=== PATIENT | female | born 1990 | race Two or more races ===

== ENCOUNTER 2021-12-12 08:57 | Emergency (ER) | payer MEDICAID ==
[~2021-12-12] VITALS: Ht 157.5 cm; Wt 84.4 kg
[2021-12-12 09:45] LABS: Basophils # (auto) 0.1 10 ^3/uL (0-0.2); Basophils % (auto) 0.7 % (0.0-2.0); Eosinophils # (auto) 0.1 10 ^3/uL (0-0.8); Eosinophils % (auto) 0.8 % (0.0-7.0); Hemoglobin 12.8 g/dL (12.2-16.2); Lymphocytes # (auto) 1.7 10 ^3/uL (0.4-5.4); Lymphocytes % (auto) 21.8 % (10.0-50.0); Mean Corpuscular Hemoglobin 29.2 pg (28.0-32.0); Mean Corpuscular Hgb Conc. 34.7 g/dL (32.0-36.0); Mean Corpuscular Volume 84.3 fL (80.0-100.0); Monocytes # (auto) 0.5 10 ^3/uL (0-1.3); Neutrophils # (auto) 5.6 10 ^3/uL (1.6-8.6); Neutrophils % (auto) 70.7 % (37.0-80.0); Red Blood Cells 4.39 10^6/uL (4.0-5.20); Red Cell Distribution Width 14.4 % (11.8-14.3); White Blood Cell 7.9 10^3/uL (4.4-10.8)
[2021-12-12 11:19] VITALS: BP 122/81
== END 2021-12-12 11:23 | disposition home or self-care (01) ==
LOC: ER 08:57
DX: O20.0 Threatened abortion (principal); N83.201 Unspecified ovarian cyst, right side; Z86.2 Personal history of diseases of the blood and blood-forming organs and certain disorders involving the immune mechanism; Z3A.09 9 weeks gestation of pregnancy
CPT/HCPCS: 36415; 76801; 84702; 85025

== ENCOUNTER → 2021-12-18 | Outpatient (CLI) | payer MEDICAID ==
[2021-12-18 11:28] LABS: Basophils # (auto) 0 10 ^3/uL (0-0.2); Basophils % (auto) 0.3 % (0.0-2.0); Eosinophils # (auto) 0 10 ^3/uL (0-0.8); Eosinophils % (auto) 0.5 % (0.0-7.0); Hematocrit 36.7 % (36.0-46.0); Hemoglobin 12.5 g/dL (12.2-16.2); Lymphocytes # (auto) 1.5 10 ^3/uL (0.4-5.4); Lymphocytes % (auto) 20.1 % (10.0-50.0); Mean Corpuscular Hemoglobin 28.4 pg (28.0-32.0); Mean Corpuscular Volume 83.6 fL (80.0-100.0); Monocytes # (auto) 0.4 10 ^3/uL (0-1.3); Monocytes % (auto) 5.8 % (0.0-12.0); Neutrophils # (auto) 5.3 10 ^3/uL (1.6-8.6); Neutrophils % (auto) 73.3 % (37.0-80.0); Red Cell Distribution Width 14.1 % (11.8-14.3); White Blood Cell 7.3 10^3/uL (4.4-10.8)
[2021-12-18 12:04] LABS: Amphetamine Screen, Urine NEGATIVE (NEGATIVE); Barbiturate Scree,Urine NEGATIVE (NEGATIVE); Benzodiazephine Screen, Urine NEGATIVE (NEGATIVE); Cannabinoid Screen, Urine NEGATIVE (NEGATIVE); Cocaine Screen, Urine NEGATIVE (NEGATIVE); Opiate Scree,Urine NEGATIVE (NEGATIVE); Phencyclidine Screen, Urine NEGATIVE (NEGATIVE)
[2021-12-19 06:25] LABS: RPR Non Reactive (Non Reactive)
== END | disposition home or self-care (01) ==
LOC: LAB 10:38
PROVIDERS: ATTEND Obstetrics & Gynecology
DX: Z34.00 Encounter for supervision of normal first pregnancy, unspecified trimester (principal); Z31.430 Encounter of female for testing for genetic disease carrier status for procreative management; Z36.0 Encounter for antenatal screening for chromosomal anomalies; N39.0 Urinary tract infection, site not specified
CPT/HCPCS: 36415; 80307; 83036; 84112; 84144; 84702; 85025; 86592; 86703; 86762; 86850; 86900; 86901; 87086; 87340

== ENCOUNTER → 2022-02-19 | Outpatient (CLI) | payer MEDICAID ==
[2022-02-19 10:17] LABS: Basophils # (auto) 0 10 ^3/uL (0-0.2); Basophils % (auto) 0.2 % (0.0-2.0); Eosinophils # (auto) 0.1 10 ^3/uL (0-0.8); Eosinophils % (auto) 0.8 % (0.0-7.0); Hematocrit 34.1 % (36.0-46.0); Hemoglobin 11.1 g/dL (12.2-16.2); Lymphocytes # (auto) 1.3 10 ^3/uL (0.4-5.4); Lymphocytes % (auto) 16.1 % (10.0-50.0); Mean Corpuscular Hemoglobin 27.9 pg (28.0-32.0); Mean Corpuscular Hgb Conc. 32.6 g/dL (32.0-36.0); Mean Corpuscular Volume 85.7 fL (80.0-100.0); Monocytes # (auto) 0.6 10 ^3/uL (0-1.3); Monocytes % (auto) 7.6 % (0.0-12.0); Neutrophils # (auto) 6.1 10 ^3/uL (1.6-8.6); Neutrophils % (auto) 75.3 % (37.0-80.0); Nucleated Red Blood Cells % 0.1 %; Red Blood Cells 3.98 10^6/uL (4.0-5.20); Red Cell Distribution Width 14.1 % (11.8-14.3)
[2022-02-19 10:52] LABS: Albumin 3.1 g/dL (3.4-5.0); Calcium 9.5 mg/dL (8.5-10.1); Potassium 3.9 mmol/L (3.5-5.1); Uric Acid 4.6 mg/dL (2.6-6.0)
[2022-02-19 10:55] LABS: BUN/Creatinine Ratio 20.5; Bilirubin, Total 0.4 mg/dL (0.2-1.0); Total Protein 6.5 g/dL (6.4-8.2)
== END | disposition home or self-care (01) ==
LOC: LAB 09:37
PROVIDERS: ATTEND Obstetrics & Gynecology
DX: Z34.00 Encounter for supervision of normal first pregnancy, unspecified trimester (principal); L29.9 Pruritus, unspecified
CPT/HCPCS: 36415; 80053; 84550; 85025

== ENCOUNTER 2022-05-28 13:43 | Observation (INO) | payer MEDICAID ==
[~2022-05-28] VITALS: Ht 157.5 cm; Wt 89.4 kg
[2022-05-28] MEDS ORDERED: TERBUTALINE SULFATE 1 MG/ML 1ML VIAL SC SCH (14:30)
[2022-05-28] MEDS ORDERED: LACTATED RINGER'S 1,000 ML IV ONE (14:30)
[2022-05-28] MEDS ORDERED: NIF10C PO (17:04)
[2022-05-28] MEDS ORDERED: PREN-96 PO (17:04)
[2022-05-28] MEDS ORDERED: NITR-87 PO (17:05)
== END 2022-05-28 17:14 | disposition home or self-care (01) ==
LOC: UNDOADMOB 13:43 → LDRP 13:43 → UNDODISOB 17:14
PROVIDERS: ADMIT Obstetrics & Gynecology; ATTEND Obstetrics & Gynecology
DX: O60.03 Preterm labor without delivery, third trimester (principal); O26.893 Other specified pregnancy related conditions, third trimester; E86.0 Dehydration; R10.9 Unspecified abdominal pain; O21.2 Late vomiting of pregnancy; O62.9 Abnormality of forces of labor, unspecified; Z3A.33 33 weeks gestation of pregnancy
CPT/HCPCS: 59025; 81002; 94760; 96360; 96372; G0378; J3105

== ENCOUNTER 2022-06-04 11:53 | Observation (INO) | payer MEDICAID ==
[~2022-06-04 11:53] MED LIST: NIF10C PO; NITR-87 PO; PREN-96 PO
== END 2022-06-04 13:38 | disposition home or self-care (01) ==
LOC: UNDOADMOB 11:53 → LDRP 11:53 → UNDODISOB 13:38
PROVIDERS: ADMIT Obstetrics & Gynecology; ATTEND Obstetrics & Gynecology
DX: O60.03 Preterm labor without delivery, third trimester (principal); Z3A.34 34 weeks gestation of pregnancy; Z87.891 Personal history of nicotine dependence
CPT/HCPCS: 59025; 81002; 94760; G0378

== ENCOUNTER 2022-06-11 09:29 | Observation (INO) | payer MEDICAID | END 2022-06-11 10:55 | disposition home or self-care (01) | LOC: UNDOADMOB 09:29 → LDRP 09:29 | PROVIDERS: ADMIT Obstetrics & Gynecology; ATTEND Obstetrics & Gynecology | DX: O60.03 Preterm labor without delivery, third trimester (principal); Z3A.35 35 weeks gestation of pregnancy; Z87.891 Personal history of nicotine dependence | CPT/HCPCS: 59025; 81002; 82948; 94760; G0378 ==

== ENCOUNTER → 2022-06-11 | Outpatient (CLI) | payer MEDICAID ==
[2022-06-11 09:28] LABS: Basophils # (auto) 0 10 ^3/uL (0-0.2); Basophils % (auto) 0.4 % (0.0-2.0); Eosinophils # (auto) 0.1 10 ^3/uL (0-0.8); Eosinophils % (auto) 1.8 % (0.0-7.0); Hematocrit 38.1 % (36.0-46.0); Hemoglobin 12.2 g/dL (12.2-16.2); Lymphocytes # (auto) 1.3 10 ^3/uL (0.4-5.4); Lymphocytes % (auto) 18.5 % (10.0-50.0); Mean Corpuscular Hemoglobin 27.3 pg (28.0-32.0); Mean Corpuscular Hgb Conc. 32.1 g/dL (32.0-36.0); Mean Corpuscular Volume 84.9 fL (80.0-100.0); Monocytes # (auto) 0.6 10 ^3/uL (0-1.3); Monocytes % (auto) 9.1 % (0.0-12.0); Neutrophils # (auto) 4.9 10 ^3/uL (1.6-8.6); Neutrophils % (auto) 70.2 % (37.0-80.0); Red Blood Cells 4.49 10^6/uL (4.0-5.20); Red Cell Distribution Width 14.5 % (11.8-14.3)
[2022-06-12 07:07] LABS: RPR Non Reactive (Non Reactive)
== END | disposition home or self-care (01) ==
LOC: LAB 09:11
PROVIDERS: ATTEND Obstetrics & Gynecology
DX: Z34.80 Encounter for supervision of other normal pregnancy, unspecified trimester (principal); Z3A.00 Weeks of gestation of pregnancy not specified
CPT/HCPCS: 36415; 84112; 85025; 86592

== ENCOUNTER 2022-07-13 09:11 | Observation (INO) | payer MEDICAID ==
[~2022-07-13 09:11] MED LIST changes: -NITR-87 PO
== END 2022-07-13 11:28 | disposition home or self-care (01) ==
LOC: LDRP 09:11
PROVIDERS: ADMIT Obstetrics & Gynecology; ATTEND Obstetrics & Gynecology
DX: O48.0 Post-term pregnancy (principal); O62.9 Abnormality of forces of labor, unspecified; O34.63 Maternal care for abnormality of vagina, third trimester; N89.8 Other specified noninflammatory disorders of vagina; Z3A.39 39 weeks gestation of pregnancy; Z87.891 Personal history of nicotine dependence
CPT/HCPCS: 59025; 76818; 81002; G0378

== ENCOUNTER 2022-07-15 09:08 | Observation (INO) | payer MEDICAID ==
[~2022-07-15] VITALS: Ht 190.5 cm; Wt 92.5 kg
[~2022-07-15 09:08] MED LIST changes: -NIF10C PO
== END 2022-07-15 21:01 | disposition home or self-care (01) ==
LOC: LDRP 19:20
PROVIDERS: ADMIT Obstetrics & Gynecology; ATTEND Obstetrics & Gynecology
DX: O48.0 Post-term pregnancy (principal); O62.9 Abnormality of forces of labor, unspecified; Z3A.40 40 weeks gestation of pregnancy
CPT/HCPCS: 59025; 76818; 81002; G0378

== ENCOUNTER 2022-07-16 10:35 | Inpatient (IN) | payer MEDICAID ==
[~2022-07-16] VITALS: Ht 160 cm; Wt 92.5 kg
[2022-07-16] MEDS ORDERED: PROMETHAZINE HCL 25 MG/ML 1ML IV PRN (11:15)
[2022-07-16] MEDS ORDERED: BUTORPHANOL TARTRATE 2 MG/1 ML VIAL IV PRN ×2 (11:15)
[2022-07-16] MEDS ORDERED: PHISODERM TOP SOLN 240ML BTL TOP PRN (11:15)
[2022-07-16] MEDS ORDERED: DERMOPLAST 60ML BOTTLE TOP PRN (11:15)
[2022-07-16] MEDS ORDERED: PENICILLIN G POT 5MIL/D5 50ML 50 ML IV ONE (11:15)
[2022-07-16] MEDS ORDERED: WITCH HAZEL-GLYCERIN PAD TOP PRN (11:15)
[2022-07-16] MEDS ORDERED: LIDOCAINE 2%HCL (LOCAL ANESTH.) INJ 20ML MDV IJ PRN (11:15)
[2022-07-16] MEDS ORDERED: LACT. RINGERS/OXYTOCIN 20UNITS 500 ML IV ONE ×2 (11:30→12:00)
[2022-07-16] MEDS: LACTATED RINGER'S 1,000 ML IV SCH (12:00)
[2022-07-16 12:10] LABS: Basophils # (auto) 0 10 ^3/uL (0-0.2); Basophils % (auto) 0.3 % (0.0-2.0); Eosinophils # (auto) 0.1 10 ^3/uL (0-0.8); Eosinophils % (auto) 1.7 % (0.0-7.0); Hematocrit 37.6 % (36.0-46.0); Hemoglobin 12.2 g/dL (12.2-16.2); Lymphocytes # (auto) 1.5 10 ^3/uL (0.4-5.4); Lymphocytes % (auto) 20.1 % (10.0-50.0); Mean Corpuscular Hemoglobin 27.7 pg (28.0-32.0); Mean Corpuscular Hgb Conc. 32.6 g/dL (32.0-36.0); Mean Corpuscular Volume 85.1 fL (80.0-100.0); Monocytes # (auto) 0.6 10 ^3/uL (0-1.3); Monocytes % (auto) 8.1 % (0.0-12.0); Neutrophils # (auto) 5.1 10 ^3/uL (1.6-8.6); Neutrophils % (auto) 69.8 % (37.0-80.0); Nucleated Red Blood Cells % 0.1 %; Red Blood Cells 4.42 10^6/uL (4.0-5.20); Red Cell Distribution Width 14.7 % (11.8-14.3); White Blood Cell 7.3 10^3/uL (4.4-10.8)
[2022-07-16] MEDS: miSOPROStol 50 MCG per PRE-CUT 1/2 TAB PO PRN ×2 (12:12→16:36)
[2022-07-16 12:15] LABS: Albumin 2.7 g/dL (3.4-5.0); BUN/Creatinine Ratio 18.5; Calcium 9.4 mg/dL (8.5-10.1)
[2022-07-16 12:18] LABS: Bilirubin, Total 0.5 mg/dL (0.2-1.0); INR 0.87 (0.9-1.15); Partial Thromboplastin Time 24.8 sec (24.6-33.4); Total Protein 6.7 g/dL (6.4-8.2)
[2022-07-16 12:31] LABS: Urine Bacteria FEW /hpf (None Seen); Urine Blood 1+ /uL (Negative); Urine Specific Gravity 1.011 (1.001-1.035); Urine WBC 8 /hpf (0 - 5)
[2022-07-16 12:48] LABS: Alcohol, Urine < 3.0 mg/dL (0-10); Benzodiazephine Screen, Urine NEGATIVE (NEGATIVE); Cannabinoid Screen, Urine NEGATIVE (NEGATIVE); Cocaine Screen, Urine NEGATIVE (NEGATIVE); Opiate Scree,Urine NEGATIVE (NEGATIVE); Phencyclidine Screen, Urine NEGATIVE (NEGATIVE)
[2022-07-16 12:50] LABS: Amphetamine Screen, Urine NEGATIVE (NEGATIVE); Barbiturate Scree,Urine NEGATIVE (NEGATIVE)
[2022-07-16] MEDS ORDERED: PENICILLIN G POTASSIUM 2,500,000 UNITS in D5W 5% 50 ML IV SCH (15:15)
[2022-07-16] MEDS: PENICILLIN G POTASSIUM 2,500,000 UNITS in D5W 5% 50 ML IV SCH ×2 (16:14→20:16)
[2022-07-16] MEDS ORDERED: ePHEDrine SULFATE 50 MG/ML AMP IV ONE (20:45)
[2022-07-16] MEDS ORDERED: ROPIVACAINE HCL 200 ML EPI SCH (20:45)
[2022-07-16] MEDS ORDERED: fentaNYL CITRATE 100 MCG/2 ML VL EPI ONE (20:45)
[2022-07-16] MEDS ORDERED: NALOXONE HCL 0.4 MG/ML VIAL IV ONE (20:45)
[2022-07-16] MEDS ORDERED: LACTATED RINGER'S 1,000 ML IV ONE (20:45)
[2022-07-17] VITALS (10 sets, daily range): BP systolic 115–142; BP diastolic 64–84
[2022-07-17] MEDS: PENICILLIN G POTASSIUM 2,500,000 UNITS in D5W 5% 50 ML IV SCH ×3 (00:15→09:11)
[2022-07-17] MEDS: ROPIVACAINE HCL 200 ML EPI SCH ×2 (00:16→11:54)
[2022-07-17] MEDS: LACTATED RINGER'S 1,000 ML IV SCH ×2 (01:08→05:46)
[2022-07-17] MEDS ORDERED: LACT. RINGERS/OXYTOCIN 20UNITS 1,000 ML IV SCH (01:15)
[2022-07-17 07:06] LABS: RPR Non Reactive (Non Reactive)
[2022-07-17] MEDS ORDERED: ROPIVACAINE HCL 200 ML ONE (11:52)
[2022-07-17] MEDS ORDERED: LIDOCAINE 2%HCL (LOCAL ANESTH.) INJ 10ml MDV ONE (12:20)
[2022-07-17] MEDS ORDERED: fentaNYL 400mCg/200ml W ROPIVA 200 ML EPI SCH (12:25)
[2022-07-17] MEDS ORDERED: fentaNYL CITRATE 100 MCG/2 ML VL ONE (12:28)
[2022-07-17] MEDS ORDERED: ePHEDrine SULFATE 50 MG/ML AMP IV ONE (13:30)
[2022-07-17] MEDS ORDERED: NALOXONE HCL 0.4 MG/ML VIAL IV ONE (13:30)
[2022-07-17] MEDS ORDERED: ceFAZolin 1GM/50ML 50 ML IV ONE (14:00)
[2022-07-17] MEDS ORDERED: ONDANSETRON HCL 4 MG/2 ML VIAL ONE (14:09)
[2022-07-17] MEDS ORDERED: ePHEDrine SULFATE 50 MG/ML AMP ONE (14:09)
[2022-07-17] MEDS ORDERED: GLYCOPYRROLATE 0.2 MG/ML 1ML VIAL ONE (14:09)
[2022-07-17] MEDS ORDERED: MORPHINE SULF PF 5 MG/10 ML VIAL ONE (14:09)
[2022-07-17] MEDS ORDERED: oxyTOCIN 10 UNIT/ML 10ML VIAL ONE (14:09)
[2022-07-17] MEDS ORDERED: LACTATED RINGER'S 1,000 ML IV SCH (14:15)
[2022-07-17] MEDS ORDERED: LACTATED RINGER'S 1,000 ML IV ONE (14:15)
[2022-07-17] MEDS ORDERED: ROCURONIUM 10MG/ML 10ML VIAL IV ONE (14:51)
[2022-07-17] MEDS ORDERED: MIDAZOLAM HCL 2MG/2ML 2ml VIAL (1mg/ml) ONE (14:52)
[2022-07-17] MEDS ORDERED: CARBOPROST TROMETHAMINE 250 MCG/1ML VIAL IM ONE (14:58)
[2022-07-17] MEDS ORDERED: FAMOTIDINE (10MG/ML) 2ML VL IV ONE (15:01)
[2022-07-17] MEDS ORDERED: GUM (CHEWING) 1 GUM CHEW CHEW ONE ×2 (15:30→15:45)
[2022-07-17] MEDS ORDERED: LACT. RINGERS/OXYTOCIN 20UNITS 1,000 ML IV ONE ×2 (15:30→15:45)
[2022-07-17] MEDS ORDERED: ONDANSETRON HCL 4 MG/2 ML VIAL IV PRN ×4 (15:30→16:00)
[2022-07-17] MEDS ORDERED: ePHEDrine SULFATE 50 MG/ML AMP IV PRN (15:45)
[2022-07-17] MEDS ORDERED: MORPHINE SULFATE 4 MG/ML SYR/VIAL IV PRN (15:45)
[2022-07-17] MEDS ORDERED: diphenhdrAMINE HCL 50 MG/1 ML VL IV PRN (16:00)
[2022-07-17] MEDS ORDERED: KETOROLAC TROMETH 30 MG/ML 1ML VIAL IV PRN (16:00)
[2022-07-17] MEDS ORDERED: DexAMETHasone SOD PHOS 10MG/1ML VIAL INJ IV PRN (16:00)
[2022-07-17] MEDS ORDERED: NALOXONE HCL 0.4 MG/ML VIAL IV PRN ×2 (16:00)
[2022-07-17] MEDS ORDERED: DIPHENOXYLATE W/ATROPINE 2.5 MG TAB PO PRN (16:00)
[2022-07-17] MEDS ORDERED: HYDROmorphone HCL 2 MG/ML VL/or syr IV PRN (16:00)
[2022-07-17 17:32] LABS: Basophils # (auto) 0 10 ^3/uL (0-0.2); Basophils % (auto) 0.1 % (0.0-2.0); Eosinophils # (auto) 0 10 ^3/uL (0-0.8); Hematocrit 34.1 % (36.0-46.0); Hemoglobin 11.3 g/dL (12.2-16.2); Lymphocytes # (auto) 0.5 10 ^3/uL (0.4-5.4); Lymphocytes % (auto) 3.7 % (10.0-50.0); Mean Corpuscular Hemoglobin 28.2 pg (28.0-32.0); Mean Corpuscular Hgb Conc. 33.2 g/dL (32.0-36.0); Mean Corpuscular Volume 84.9 fL (80.0-100.0); Monocytes # (auto) 0.7 10 ^3/uL (0-1.3); Monocytes % (auto) 4.8 % (0.0-12.0); Neutrophils # (auto) 12.5 10 ^3/uL (1.6-8.6); Neutrophils % (auto) 91.4 % (37.0-80.0); Red Blood Cells 4.02 10^6/uL (4.0-5.20); Red Cell Distribution Width 14.9 % (11.8-14.3); White Blood Cell 13.6 10^3/uL (4.4-10.8)
[2022-07-17 17:50] LABS: Albumin 2.2 g/dL (3.4-5.0); BUN/Creatinine Ratio 18.1; Calcium 8.3 mg/dL (8.5-10.1); Potassium 3.3 mmol/L (3.5-5.1); Uric Acid 6.4 mg/dL (2.6-6.0)
[2022-07-17 17:53] LABS: Bilirubin, Total 0.8 mg/dL (0.2-1.0); Total Protein 5.5 g/dL (6.4-8.2)
[2022-07-17 18:00] LABS: INR 0.93 (0.9-1.15); Partial Thromboplastin Time 24.8 sec (24.6-33.4)
[2022-07-17 18:03] LABS: Urine Bacteria NONE SEEN /hpf (None Seen); Urine Blood 2+ /uL (Negative); Urine Specific Gravity 1.011 (1.001-1.035); Urine WBC 4 /hpf (0 - 5)
[2022-07-17 18:33] LABS: Protein, Urine 30.9 mg/dL (0.0-11.9)
[2022-07-17] MEDS ORDERED: fentaNYL CITRATE 100 MCG/2 ML VL IV ONE (19:30)
[2022-07-17] MEDS: ceFAZolin 1GM/50ML 50 ML IV SCH (21:02)
[2022-07-17 23:27] LABS: Basophils # (auto) 0 10 ^3/uL (0-0.2); Basophils % (auto) 0.1 % (0.0-2.0); Eosinophils # (auto) 0 10 ^3/uL (0-0.8); Hematocrit 31.8 % (36.0-46.0); Hemoglobin 10.3 g/dL (12.2-16.2); Lymphocytes # (auto) 0.7 10 ^3/uL (0.4-5.4); Mean Corpuscular Hemoglobin 27.6 pg (28.0-32.0); Mean Corpuscular Hgb Conc. 32.4 g/dL (32.0-36.0); Mean Corpuscular Volume 85.1 fL (80.0-100.0); Monocytes # (auto) 0.8 10 ^3/uL (0-1.3); Monocytes % (auto) 5.6 % (0.0-12.0); Neutrophils # (auto) 12.2 10 ^3/uL (1.6-8.6); Neutrophils % (auto) 89.3 % (37.0-80.0); Red Blood Cells 3.73 10^6/uL (4.0-5.20); Red Cell Distribution Width 15.3 % (11.8-14.3); White Blood Cell 13.7 10^3/uL (4.4-10.8)
[2022-07-18] VITALS (20 sets, daily range): BP systolic 110–146; BP diastolic 65–83
[2022-07-18] MEDS: ACETAMINOPHEN IV 1000 MG/100ML (10MG/ML) IV PRN ×2 (03:50→13:01)
[2022-07-18] MEDS: ceFAZolin 1GM/50ML 50 ML IV SCH ×3 (05:33→21:12)
[2022-07-18 06:38] LABS: Basophils # (auto) 0 10 ^3/uL (0-0.2); Basophils % (auto) 0.1 % (0.0-2.0); Eosinophils # (auto) 0 10 ^3/uL (0-0.8); Hematocrit 29.4 % (36.0-46.0); Hemoglobin 9.9 g/dL (12.2-16.2); Lymphocytes # (auto) 1.6 10 ^3/uL (0.4-5.4); Lymphocytes % (auto) 13.4 % (10.0-50.0); Mean Corpuscular Hemoglobin 28.6 pg (28.0-32.0); Mean Corpuscular Hgb Conc. 33.6 g/dL (32.0-36.0); Mean Corpuscular Volume 85.1 fL (80.0-100.0); Monocytes % (auto) 8.2 % (0.0-12.0); Neutrophils # (auto) 9.3 10 ^3/uL (1.6-8.6); Neutrophils % (auto) 78.3 % (37.0-80.0); Nucleated Red Blood Cells % 0.1 %; Red Blood Cells 3.45 10^6/uL (4.0-5.20); Red Cell Distribution Width 15.2 % (11.8-14.3); White Blood Cell 11.9 10^3/uL (4.4-10.8)
[2022-07-18] MEDS ORDERED: HYDR-4902 PO (07:17)
[2022-07-18] MEDS ORDERED: IBUP800T27 PO (07:17)
[2022-07-18] MEDS ORDERED: DOCU-94 PO (07:17)
[2022-07-18] MEDS ORDERED: BISACODYL 10 MG RECT SUPP PR PRN (14:30)
[2022-07-18] MEDS ORDERED: LACTATED RINGER'S 1,000 ML IV SCH (14:30)
[2022-07-18] MEDS ORDERED: HYDROcodone-ACET 5/325MG TAB PO PRN (14:30)
[2022-07-18] MEDS: HYDROcodone-ACET 5/325MG TAB PO PRN (15:51)
[2022-07-18] MEDS: SIMETHICONE 80 MG CHEWABLE TABLET PO SCH ×2 (21:10→21:12)
[2022-07-18] MEDS: DOCUSATE SOD 100 MG CAP PO SCH (21:12)
[2022-07-18] MEDS: IBUPROFEN 800 MG TAB PO PRN (21:13)
[2022-07-19] MEDS: HYDROcodone-ACET 5/325MG TAB PO PRN ×4 (00:44→22:14)
[2022-07-19 03:30] VITALS: BP 128/66
[2022-07-19] MEDS: ceFAZolin 1GM/50ML 50 ML IV SCH (05:24)
[2022-07-19] MEDS: IBUPROFEN 800 MG TAB PO PRN ×2 (05:24→12:55)
[2022-07-19] MEDS: SIMETHICONE 80 MG CHEWABLE TABLET PO SCH ×4 (05:24→22:05)
[2022-07-19 07:00] VITALS: BP 130/70
[2022-07-19] MEDS: DOCUSATE CALCIUM 240 MG CAP PO SCH ×2 (10:51→13:08)
[2022-07-19 11:00] VITALS: BP 138/69
[2022-07-19 15:00] VITALS: BP 140/69
[2022-07-19 19:30] VITALS: BP 137/84
[2022-07-19] MEDS: DOCUSATE SOD 100 MG CAP PO SCH ×2 (22:00→22:05)
[2022-07-19 22:48] VITALS: BP 134/84
[2022-07-20 03:00] VITALS: BP 133/79
[2022-07-20] MEDS: HYDROcodone-ACET 5/325MG TAB PO PRN (04:34)
[2022-07-20] MEDS: SIMETHICONE 80 MG CHEWABLE TABLET PO SCH (06:00)
[2022-07-20 07:00] VITALS: BP 140/79
[2022-07-20] MEDS: DOCUSATE SOD 100 MG CAP PO SCH (10:00)
[2022-07-20] MEDS: IBUPROFEN 800 MG TAB PO PRN (10:09)
[2022-07-20 11:00] VITALS: BP 129/84
== END 2022-07-20 12:26 | disposition home or self-care (01) | DRG 540 ==
LOC: LDRP 10:35
PROVIDERS: ADMIT Obstetrics & Gynecology; ATTEND Obstetrics & Gynecology
PROC: 10D00Z1 Extraction of Products of Conception, Low, Open Approach (ICD-10-PCS; principal; 2022-07-17 14:28)
DX: O48.0 Post-term pregnancy (principal); O62.0 Primary inadequate contractions; O69.81X0 Labor and delivery complicated by cord around neck, without compression, not applicable or unspecified; Z20.822 Contact with and (suspected) exposure to COVID-19; Z3A.40 40 weeks gestation of pregnancy; Z37.0 Single live birth
CPT/HCPCS: 36415; 59025; 62282; 80053; 80307; 81001; 81002; 82570; 84156; 84550; 85025; 85362; 85610; 85730; 86592; 86850; 86900; 86901; 87426; 94760; 94762; 96360; 96361; 96365; 96366; 96374; G0378; J0131; J0690; J2001; J2250; J2405; J2540; J2590; J3490; J7060

== ENCOUNTER 2022-07-21 17:10 | Inpatient (IN) | payer MEDICAID ==
[~2022-07-21] VITALS: Ht 160 cm; Wt 90.6 kg
[~2022-07-21 17:10] MED LIST changes: +DOCU-94 PO; +HYDR-4902 PO; +IBUP800T27 PO
[2022-07-21] MEDS: SODIUM CHLORIDE 0.9% 1,000 ML IV ONE ×2 (18:31→18:40)
[2022-07-21] MEDS ORDERED: cefTRIAXone 1GM/50ML D5W 50 ML IV ONE (18:45)
[2022-07-21] MEDS ORDERED: SODIUM CHLORIDE 0.9% 2,100 ML IV ONE (18:45)
[2022-07-21 18:46] LABS: Basophils # (auto) 0 10 ^3/uL (0-0.2); Eosinophils # (auto) 0.1 10 ^3/uL (0-0.8); Hemoglobin 10.9 g/dL (12.2-16.2); Lymphocytes # (auto) 1.1 10 ^3/uL (0.4-5.4); Lymphocytes % (auto) 8.6 % (10.0-50.0); Mean Corpuscular Volume 84.9 fL (80.0-100.0); Monocytes # (auto) 0.6 10 ^3/uL (0-1.3); Neutrophils # (auto) 10.4 10 ^3/uL (1.6-8.6); Neutrophils % (auto) 85.4 % (37.0-80.0); Red Blood Cells 3.89 10^6/uL (4.0-5.20); Red Cell Distribution Width 14.8 % (11.8-14.3); White Blood Cell 12.2 10^3/uL (4.4-10.8)
[2022-07-21 18:50] LABS: Albumin 2.5 g/dL (3.4-5.0); BUN/Creatinine Ratio 15.8; Calcium 8.6 mg/dL (8.5-10.1); Potassium 3.4 mmol/L (3.5-5.1)
[2022-07-21] MEDS ORDERED: ACETAMINOPHEN 325 MG TAB PO ONE (19:00)
[2022-07-21 19:31] LABS: Bilirubin, Total 0.6 mg/dL (0.2-1.0); Total Protein 7.1 g/dL (6.4-8.2)
[2022-07-21 21:38] LABS: Alcohol, Urine < 3.0 mg/dL (0-10); Amphetamine Screen, Urine NEGATIVE (NEGATIVE); Barbiturate Scree,Urine NEGATIVE (NEGATIVE); Benzodiazephine Screen, Urine NEGATIVE (NEGATIVE); Cannabinoid Screen, Urine NEGATIVE (NEGATIVE); Cocaine Screen, Urine NEGATIVE (NEGATIVE); Opiate Scree,Urine NEGATIVE (NEGATIVE); Phencyclidine Screen, Urine NEGATIVE (NEGATIVE)
[2022-07-21 21:53] LABS: Urine Bacteria NONE SEEN /hpf (None Seen); Urine Blood 3+ /uL (Negative); Urine Mucus FEW (None Seen); Urine Specific Gravity 1.016 (1.001-1.035); Urine WBC 14 /hpf (0 - 5)
[2022-07-21] MEDS ORDERED: PIPERACILLIN-TAZOB 3.375GM 100 ML IV ONE (22:45)
[2022-07-21] MEDS ORDERED: ONDANSETRON HCL 4 MG/2 ML VIAL IV PRN (23:15)
[2022-07-21] MEDS ORDERED: DOCUSATE SOD 100 MG CAP PO PRN (23:15)
[2022-07-21] MEDS ORDERED: POTASSIUM CHL 20 Meq TABLET PO ONE (23:30)
[2022-07-21] MEDS: SODIUM CHLORIDE 0.9% 1,000 ML IV SCH (23:57)
[2022-07-22] MEDS: HYDROcodone-ACET 5/325MG TAB PO PRN ×3 (04:29→18:47)
[2022-07-22 06:10] LABS: Albumin 2.1 g/dL (3.4-5.0); Calcium 8.4 mg/dL (8.5-10.1); Potassium 3.3 mmol/L (3.5-5.1)
[2022-07-22 06:13] LABS: BUN/Creatinine Ratio 17.6
[2022-07-22 06:14] LABS: Basophils # (auto) 0 10 ^3/uL (0-0.2); Basophils % (auto) 0.1 % (0.0-2.0); Eosinophils # (auto) 0.1 10 ^3/uL (0-0.8); Eosinophils % (auto) 0.7 % (0.0-7.0); Hematocrit 29.1 % (36.0-46.0); Hemoglobin 9.6 g/dL (12.2-16.2); Lymphocytes # (auto) 1.2 10 ^3/uL (0.4-5.4); Lymphocytes % (auto) 9.3 % (10.0-50.0); Mean Corpuscular Hemoglobin 28.1 pg (28.0-32.0); Mean Corpuscular Volume 85.1 fL (80.0-100.0); Monocytes # (auto) 0.9 10 ^3/uL (0-1.3); Monocytes % (auto) 6.8 % (0.0-12.0); Neutrophils # (auto) 10.5 10 ^3/uL (1.6-8.6); Neutrophils % (auto) 83.1 % (37.0-80.0); Nucleated Red Blood Cells % 0.1 %; Red Blood Cells 3.41 10^6/uL (4.0-5.20); Red Cell Distribution Width 14.8 % (11.8-14.3); White Blood Cell 12.6 10^3/uL (4.4-10.8)
[2022-07-22 06:15] LABS: Bilirubin, Total 0.6 mg/dL (0.2-1.0); Total Protein 5.9 g/dL (6.4-8.2)
[2022-07-22] MEDS: PIPERACILLIN-TAZOB 3.375GM 100 ML IV SCH ×3 (08:07→23:56)
[2022-07-22] MEDS ORDERED: cefTRIAXone 1GM/50ML D5W 50 ML IV SCH (09:00)
[2022-07-22] MEDS: SODIUM CHLORIDE 0.9% 1,000 ML IV SCH (09:15)
[2022-07-22] MEDS ORDERED: PANTOPRAZOLE 40 MG/10 ML VIAL INJ IV SCH (10:00)
[2022-07-22] MEDS ORDERED: SOD CHL 0.9%/ KCL 40MEQ 1,000 ML IV ONE (10:45)
[2022-07-22] MEDS: ACETAMINOPHEN 325 MG TAB PO PRN (18:47)
[2022-07-22 22:00] VITALS: BP 124/88
[2022-07-23] VITALS (7 sets, daily range): BP systolic 92–151; BP diastolic 47–107
[2022-07-23] MEDS: HYDROcodone-ACET 5/325MG TAB PO PRN ×3 (01:30→19:13)
[2022-07-23 07:00] LABS: BUN/Creatinine Ratio 15.4; Calcium 8.4 mg/dL (8.5-10.1); Potassium 3.6 mmol/L (3.5-5.1)
[2022-07-23 07:09] LABS: Basophils # (auto) 0 10 ^3/uL (0-0.2); Basophils % (auto) 0.1 % (0.0-2.0); Eosinophils # (auto) 0.2 10 ^3/uL (0-0.8); Hematocrit 27.9 % (36.0-46.0); Hemoglobin 9.4 g/dL (12.2-16.2); Lymphocytes # (auto) 1.1 10 ^3/uL (0.4-5.4); Lymphocytes % (auto) 9.6 % (10.0-50.0); Mean Corpuscular Hemoglobin 28.3 pg (28.0-32.0); Mean Corpuscular Hgb Conc. 33.6 g/dL (32.0-36.0); Mean Corpuscular Volume 84.4 fL (80.0-100.0); Monocytes # (auto) 0.9 10 ^3/uL (0-1.3); Neutrophils # (auto) 9.1 10 ^3/uL (1.6-8.6); Neutrophils % (auto) 80.3 % (37.0-80.0); Nucleated Red Blood Cells % 0.3 %; Red Cell Distribution Width 15.1 % (11.8-14.3); White Blood Cell 11.4 10^3/uL (4.4-10.8)
[2022-07-23] MEDS ORDERED: POLYETHYLENE GLYCOL 17 GM PWDR PO PRN (09:00)
[2022-07-23] MEDS: PIPERACILLIN-TAZOB 3.375GM 100 ML IV SCH ×2 (09:02→17:32)
[2022-07-23] MEDS ORDERED: CEPH-510 PO (09:03)
[2022-07-23] MEDS: LACTATED RINGER'S 1,000 ML IV SCH ×2 (09:03→18:45)
[2022-07-23] MEDS ORDERED: NIFEdipine ER 30 MG TAB PO SCH (14:15)
[2022-07-23 16:10] LABS: Albumin 2.2 g/dL (3.4-5.0); Anion Gap 7 (5-15); Blood Urea Nitrogen 6 mg/dL (7-18); Calcium 8.5 mg/dL (8.5-10.1); Carbon Dioxide 28 mmol/L (21-32); Chloride 105 mmol/L (98-107); Glucose 102 mg/dL (74-106); Potassium 3.2 mmol/L (3.5-5.1); Sodium 140 mmol/L (136-145)
[2022-07-23 16:20] LABS: Alanine Aminotransferase 24 U/L (13-56); Alkaline Phosphatase 114 U/L (45-117); Aspartate Aminotransferase 30 U/L (15-37); BUN/Creatinine Ratio 11.5; Bilirubin, Total 0.7 mg/dL (0.2-1.0); GFR African American 178 mL/min; GFR Non-African American 147 mL/min; Total Protein 6.4 g/dL (6.4-8.2)
[2022-07-23 16:22] LABS: CRP High Sensitivity > 19.0 mg/dL (< 0.3)
[2022-07-23 18:06] LABS: Urine Bacteria NONE SEEN /hpf (None Seen); Urine Blood 3+ /uL (Negative); Urine Specific Gravity 1.011 (1.001-1.035); Urine WBC 279 /hpf (0 - 5)
[2022-07-23 18:16] LABS: Protein, Urine 60.2 mg/dL (0.0-11.9)
[2022-07-23] MEDS ORDERED: POTASSIUM EFFERVESENT TAB 25 MEQ PO ONE (19:15)
[2022-07-23] MEDS: LABETALOL HCL 200 MG TAB PO SCH (22:06)
[2022-07-24] MEDS: ACETAMINOPHEN 325 MG TAB PO PRN (00:03)
[2022-07-24] MEDS: PIPERACILLIN-TAZOB 3.375GM 100 ML IV SCH ×2 (00:49→09:29)
[2022-07-24] MEDS: HYDROcodone-ACET 5/325MG TAB PO PRN ×2 (03:27→09:29)
[2022-07-24] MEDS ORDERED: LACTATED RINGER'S 1,000 ML IV SCH (04:45)
[2022-07-24 05:00] VITALS: BP 124/83
[2022-07-24 05:53] LABS: Basophils # (auto) 0 10 ^3/uL (0-0.2); Basophils % (auto) 0.1 % (0.0-2.0); Eosinophils # (auto) 0.3 10 ^3/uL (0-0.8); Eosinophils % (auto) 2.4 % (0.0-7.0); Hematocrit 29.9 % (36.0-46.0); Hemoglobin 9.9 g/dL (12.2-16.2); Lymphocytes # (auto) 1.3 10 ^3/uL (0.4-5.4); Lymphocytes % (auto) 10.8 % (10.0-50.0); Mean Corpuscular Hemoglobin 27.8 pg (28.0-32.0); Mean Corpuscular Volume 84.3 fL (80.0-100.0); Monocytes # (auto) 0.9 10 ^3/uL (0-1.3); Monocytes % (auto) 7.5 % (0.0-12.0); Neutrophils # (auto) 9.3 10 ^3/uL (1.6-8.6); Neutrophils % (auto) 79.2 % (37.0-80.0); Nucleated Red Blood Cells % 0.1 %; Red Blood Cells 3.55 10^6/uL (4.0-5.20); Red Cell Distribution Width 15.5 % (11.8-14.3); White Blood Cell 11.7 10^3/uL (4.4-10.8)
[2022-07-24 06:05] LABS: BUN/Creatinine Ratio 11.5; Calcium 8.5 mg/dL (8.5-10.1)
[2022-07-24 08:00] VITALS: BP 127/91
[2022-07-24 09:00] VITALS: BP 127/91
[2022-07-24] MEDS ORDERED: LABE200T6 PO (09:19)
[2022-07-24] MEDS: LABETALOL HCL 200 MG TAB PO SCH (09:57)
[2022-07-24 11:05] VITALS: BP 127/91
== END 2022-07-24 12:54 | disposition home or self-care (01) | DRG 561 ==
LOC: ER 17:10 → OVERFLOW 23:17 → WEST WING 07-22 21:09
PROVIDERS: ADMIT Nurse Practitioner Family; ATTEND Nurse Practitioner Acute Care
DX: O85 Puerperal sepsis (principal); E43 Unspecified severe protein-calorie malnutrition; E86.0 Dehydration; N39.0 Urinary tract infection, site not specified; Z20.822 Contact with and (suspected) exposure to COVID-19; O99.285 Endocrine, nutritional and metabolic diseases complicating the puerperium; O25.3 Malnutrition in the puerperium; E87.6 Hypokalemia; G43.909 Migraine, unspecified, not intractable, without status migrainosus; K59.00 Constipation, unspecified; Z90.49 Acquired absence of other specified parts of digestive tract
CPT/HCPCS: 36415; 71045; 74176; 80048; 80053; 80307; 81001; 82570; 83605; 84156; 84550; 84702; 85025; 86141; 86850; 86900; 86901; 87040; 87086; 87426; 93005; 96365; 96375; C9113; G0378; J0696; J2543

== ENCOUNTER 2023-08-03 20:22 | Emergency (ER) | payer MEDICAID ==
[~2023-08-03] VITALS: Ht 160 cm; Wt 90.0 kg
[~2023-08-03 20:22] MED LIST changes: +CEPH-510 PO; +IBUP-1456 PO; -IBUP800T27 PO; +LABE200T6 PO
[2023-08-03 20:58] LABS: Urine Bacteria NONE SEEN /hpf (None Seen); Urine Blood 1+ /uL (Negative); Urine Clarity Clear (Clear); Urine Color Yellow (Yellow); Urine Mucus FEW (None Seen); Urine Protein, UAD TRACE (Negative); Urine Specific Gravity 1.028 (1.001-1.035); Urine Urobilinogen Normal (Negative); Urine WBC 3 /hpf (0 - 5); Urine pH 5.5 (5.0-8.0)
[2023-08-04] MEDS ORDERED: CYCL-837 PO (02:05)
[2023-08-04] MEDS ORDERED: IBUP-1455 PO (02:05)
[2023-08-04 02:15] VITALS: BP 136/95; PULSE 72; RESP 16; TEMP 98.1; O2SAT 96
[2023-08-04] MEDS: methylPREDNISolone SOD SUCC 125 MG/2 ML VL IM ONE (02:30)
[2023-08-04] MEDS: KETOROLAC TROMETH 30 MG/ML 1ML VIAL IM ONE (02:31)
== END 2023-08-04 02:35 | disposition home or self-care (01) ==
LOC: ER 20:22
DX: S39.012A Strain of muscle, fascia and tendon of lower back, initial encounter (principal); N83.201 Unspecified ovarian cyst, right side; Z86.2 Personal history of diseases of the blood and blood-forming organs and certain disorders involving the immune mechanism; Z79.1 Long term (current) use of non-steroidal anti-inflammatories (NSAID); Z79.899 Other long term (current) drug therapy; X58.XXXA Exposure to other specified factors, initial encounter; Y93.89 Activity, other specified; Y92.89 Other specified places as the place of occurrence of the external cause; Y99.8 Other external cause status
CPT/HCPCS: 76856; 81001; 96372; 99285; J1885; J2930